=== PATIENT | female | born 1935 | race Caucasian/White ===

== ENCOUNTER 2022-11-10 15:20 | Inpatient (IN) ==
[2022-11-10] MEDS ORDERED: Polyethylene Glycol 3350 17 GM PACKET PO PRN (17:50)
[2022-11-10] MEDS: Enoxaparin 40 MG/0.4 ML SYR SUBCUT SCH (22:02)
[2022-11-11] MEDS: cefTRIAXone 1 gm/50 mL D5W 1 GM/50 ML BAG IV SCH (15:28)
[2022-11-11] MEDS: Enoxaparin 40 MG/0.4 ML SYR SUBCUT SCH (21:28)
[2022-11-12] MEDS: cefTRIAXone 1 gm/50 mL D5W 1 GM/50 ML BAG IV SCH (15:40)
[2022-11-12] MEDS: Enoxaparin 40 MG/0.4 ML SYR SUBCUT SCH (20:01)
[2022-11-13] MEDS ORDERED: CMC:Alendronate 70 mg TAB (NF) PO SCH (06:00)
[2022-11-13] MEDS: cefTRIAXone 1 gm/50 mL D5W 1 GM/50 ML BAG IV SCH (15:26)
[2022-11-13] MEDS ORDERED: Senna TAB 8.6 mg TAB PO ONE (21:00)
[2022-11-13] MEDS: Enoxaparin 40 MG/0.4 ML SYR SUBCUT SCH (21:51)
[2022-11-14 06:26] VITALS: BP 158/76
[2022-11-14] MEDS ORDERED: Polyethylene Glycol 3350 17 GM PACKET PO ONE (08:29)
[2022-11-14] MEDS ORDERED: Magnesium Hydroxide LIQ 30 ML UDC PO ONE (08:30)
[2022-11-14 09:26] LABS: Rapid COVID-19 Molecular Undetected (Undetected)
== END 2022-11-14 10:40 | DRG 101 ==
LOC: MED 16:00 → SUATTDRO 16:00
PROVIDERS: ADMIT Internal Medicine; ATTEND Internal Medicine

== ENCOUNTER 2022-11-26 12:59 | Inpatient (IN) ==
[2022-11-26] MEDS ORDERED: Haloperidol 5 mg/ml SDV IV/IM 5 MG/ML AMP IM ONE (14:19)
[2022-11-26] MEDS ORDERED: Magnesium Hydroxide LIQ 30 ML UDC PO PRN (16:02)
[2022-11-26] MEDS ORDERED: guaiFENesin 100 mg/5 ml LIQ unit dose cup PO PRN (16:05)
[2022-11-26] MEDS ORDERED: Lidocaine PATCH 5% PATCH TRANSDERM PRN (16:06)
[2022-11-26] MEDS ORDERED: Polyethylene Glycol 3350 17 GM PACKET PO PRN (16:07)
[2022-11-26] MEDS: Morphine ORAL CONCENTRATE 5 MG/0.25 ML ORAL.SYRIN SL PRN ×2 (16:35→20:08)
[2022-11-27] MEDS: Morphine ORAL CONCENTRATE 5 MG/0.25 ML ORAL.SYRIN SL PRN ×6 (02:06→23:53)
[2022-11-27 09:09] VITALS: BP 00/00
[2022-11-27] MEDS: Atropine 1% (ORAL/SL) 15 ML BTL SL PRN (14:57)
[2022-11-28] MEDS: Morphine ORAL CONCENTRATE 5 MG/0.25 ML ORAL.SYRIN SL PRN ×5 (03:17→14:26)
[2022-11-28] MEDS: Morphine ORAL CONCENTRATE 5 MG/0.25 ML ORAL.SYRIN SL SCH ×6 (16:30→23:13)
[2022-11-28] MEDS: Atropine 1% (ORAL/SL) 15 ML BTL SL PRN (20:47)
[2022-11-29] MEDS: Morphine ORAL CONCENTRATE 5 MG/0.25 ML ORAL.SYRIN SL SCH ×11 (01:10→21:34)
[2022-11-30] MEDS: Morphine ORAL CONCENTRATE 5 MG/0.25 ML ORAL.SYRIN SL SCH ×13 (00:11→21:15)
[2022-11-30] MEDS: Atropine 1% (ORAL/SL) 15 ML BTL SL PRN (00:16)
[2022-11-30] MEDS: Atropine 1% (ORAL/SL) 15 ML BTL SL SCH (21:28)
[2022-12-01] MEDS: Morphine ORAL CONCENTRATE 5 MG/0.25 ML ORAL.SYRIN SL SCH ×13 (00:14→22:16)
[2022-12-01] MEDS: Atropine 1% (ORAL/SL) 15 ML BTL SL SCH ×6 (00:15→23:22)
[2022-12-02] MEDS: Morphine ORAL CONCENTRATE 5 MG/0.25 ML ORAL.SYRIN SL SCH ×6 (00:27→08:36)
[2022-12-02] MEDS: Atropine 1% (ORAL/SL) 15 ML BTL SL SCH ×3 (01:30→07:48)
== END 2022-12-02 10:16 | disposition expired | DRG 951 ==
LOC: ED 12:59 → SUATTDRO 15:40 → EDHOLD 15:40 → SSU 11-27 08:20
PROVIDERS: ADMIT Hospitalist; ATTEND Internal Medicine